=== PATIENT | male | born 1985 | race African-American/Black ===

== ENCOUNTER 2020-09-20 23:26 | Emergency (ER) | payer OTHER ==
[~2020-09-20] VITALS: Ht 193 cm; Wt 113.0 kg
[2020-09-21 01:10] VITALS: BP 150/82
== END 2020-09-21 01:12 | disposition home or self-care (01) ==
LOC: ED 23:53
DX: S60.221A Contusion of right hand, initial encounter (principal); X58.XXXA Exposure to other specified factors, initial encounter; Y93.89 Activity, other specified; Y92.410 Unspecified street and highway as the place of occurrence of the external cause; Y99.8 Other external cause status
CPT/HCPCS: 99283

== ENCOUNTER 2021-05-23 13:58 | Emergency (ER) | payer MEDICAID, OTHER ==
[~2021-05-23] VITALS: Ht 193 cm; Wt 114.0 kg
[2021-05-23 14:01] VITALS: BP 134/86
[2021-05-23] MEDS ORDERED: CARBAMIDE PEROXIDE EAR DROPS 6.5%, 15ML ONE (14:11)
[2021-05-23] MEDS ORDERED: CARBAMIDE PEROXIDE EAR DROPS 6.5%, 15ML EACH EAR ONE (14:30)
--- NOTE | 2021-05-23 15:45 | NUR ---
Patient given discharge instructions and they have confirmed that they understand the instructions. Patient ambulatory with steady gait.
== END 2021-05-23 15:47 | disposition home or self-care (01) ==
LOC: ED 15:28
DX: H61.23 Impacted cerumen, bilateral (principal); H60.93 Unspecified otitis externa, bilateral; F17.210 Nicotine dependence, cigarettes, uncomplicated
CPT/HCPCS: 69209; 99283